=== PATIENT | male | born 1940 | race Caucasian/White ===

== ENCOUNTER → 2019-10-21 12:01 | Outpatient (BNVA) | payer OTHER, SELFPAY | PROVIDERS: Family Provider Family Medicine; PCP Family Medicine; Visit Provider Specialist | DX: G62.9 Polyneuropathy, unspecified (principal); M79.662 Pain in left lower leg; M79.661 Pain in right lower leg; Z87.891 Personal history of nicotine dependence | CPT/HCPCS: 95909 ==

== ENCOUNTER → 2020-06-16 12:57 | Outpatient (BNVA) | payer OTHER, SELFPAY | PROVIDERS: Family Provider Family Medicine; PCP Family Medicine; Visit Provider Internal Medicine Rheumatology | DX: M45.9 Ankylosing spondylitis of unspecified sites in spine (principal); Z79.899 Other long term (current) drug therapy; Z11.1 Encounter for screening for respiratory tuberculosis; Z11.59 Encounter for screening for other viral diseases; S22.079A Unspecified fracture of T9-T10 vertebra, initial encounter for closed fracture; Y93.9 Activity, unspecified; I25.10 Atherosclerotic heart disease of native coronary artery without angina pectoris; I48.91 Unspecified atrial fibrillation; Z85.46 Personal history of malignant neoplasm of prostate; Z87.891 Personal history of nicotine dependence | CPT/HCPCS: 36415; 80076; 82565; 85025; 85651; 86140; 86480; 86704; 86803; 86812; 87340; 99204 ==

== ENCOUNTER 2021-04-12 14:29 | Emergency (ER) | payer OTHER, SELFPAY ==
--- NOTE | 2021-04-12 14:42 | USCV_ITS ---
Herman Luna Age: 80 Gender: M : 1940 Exam Date: 04/12/2021 15:10 Ordering Phys: Gavi Bernstein Technologist: Rodrick Villatoro [place] [facility] [facility] [place]: LLE SWELLING HISTORY: Lower extremity swelling. PROCEDURES: Venous duplex imaging was performed in only the left lower extremity. The following venous structures were evaluated: common femoral vein, profunda vein, proximal portion of the greater saphenous vein, superficial femoral vein, and the popliteal vein. In addition, the posterior tibial and peroneal trunk were evaluated. Serial compression, augmentation maneuvers, and spectral Doppler flow evaluation were performed. FINDINGS: No evidence of DVT seen in any vessel visualized at this time. CONCLUSIONS No evidence of left lower extremity DVT. Clifford Joyce MD (Electronically Signed) Final Date: 12 April 2021 16:26 S
--- NOTE | 2021-04-12 15:13 | PC.NURSE ---
1ST CALL TO LOBBY NO ANSWER
[2021-04-12 16:13] VITALS: BP 157/73; PULSE 53; RESP 16; TEMP 36.5; O2SAT 98; BMI 33.1
--- NOTE | 2021-04-12 16:25 | ED_ITS ---
HPI - General Adult General: Chief complaint: Extremity Problem,Nontraumatic Stated complaint: [facility] for poss clot Time Seen by Provider: 04/12/21 16:09 History of Present Illness: HPI narrative: Patient is a 80-year-old male with history of chronic lower extremity swelling who presents emergency room for evaluation of possible DVT in the L leg. Patient was seen today at the [place] [facility] was found to have a high lab number. Patient was told to go to the emergency for evaluation of blood clot. Patient denies any pain. Patient denies any decreased sensation numbness, leg wound, fever/chills, worsening pain or numbness in the affected extremity. Onset: chronic Duration:ongoing Location:home Severity:mild Review of Systems Narrative: Constitutional: No fever, no chills. HEENT: No vision changes CV: No chest pain, no palpitations PULM: no cough, no dyspnea. GI: No abdominal pain, no N/V/D. : No dysuria MSKEL: No muscle pain, +L leg swelling SKIN: No new rashes, no lesions. NEURO: No headache, no focal weakness. HEME: No visible bruises PSYCH: Normal mood PFSH ED PFSH: Medical History Ankylosing spondylitis 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 Atrial fibrillation CAD (coronary artery disease) Cardiomyopathy Embolic stroke Fracture of neck and mid back Fracture of T10 vertebra History of colon polyps HTN (hypertension) Hyperlipidemia Obstructive sleep apnea Prostate cancer Surgical History H/O heart bypass surgery x2 H/O transurethral resection of prostate History of colonoscopy 2019 History of esophagogastroduodenoscopy (EGD) 2014 History of hernia repair History of umbilical hernia repair 2014 Family History Other CAD (coronary artery disease) Cancer Diabetes Hyperlipidemia Hypertension Stroke Denies family history of Rheumatoid arthritis Lupus Chronic kidney disease (CKD) Family history of premature coronary artery disease Lung disease Social History Smoking and tobacco status: never smoked Alcohol intake: never History of recent travel: No Physical Exam Narrative: EXAM NARRATIVE: Head: Atraumatic Eyes: PERRL, conjunctiva without injection ENT: Mucous membrane moist NECK: Supple, ROM intact LUNGS: LCTAB, no crackles/rhonchi CV: RRR ABDOMEN: Soft, nontender in all quadrants EXTREMITY: Normal ROM, 2+ edema b/l in the LE, no ke's sign L, 2+ DP/PT pulses L leg, cap refill< 3 seconds, sensations and strength intact in the L leg SKIN: No rash or erythema NEURO: Awake and alert, no focal motor deficits PSYCH: Normal mood and affect Course Vital Signs: Vital signs: Vital Signs Temperature 97.7 F 04/12/21 16:13 Pulse Rate 53 L 04/12/21 16:13 Respiratory Rate 16 04/12/21 16:13 Blood Pressure 157/73 04/12/21 16:13 Pulse Oximetry 98 04/12/21 16:13 MDM - General Adult MDM Narrative: Medical decision making narrative: 80-year-old male presents emergency room for evaluation of possible clot in the left leg in the setting of chronic swelling abnormal blood work. On exam, patient has 2+ left lower extremity swelling. Neurovascular exam intact on the affected side. US negative for DVT. Patient has no focal complaints of pains. Do not acute NSTI infection, compartment syndrome, arterial vascular occlusion, trauma/injuries at this time. If patient has repeat swelling or pain, to get repeat US in 1 week. RX tylenol PRN pain Disposition: Discharge. Patient counseled regarding diagnostic impression, treatment plan. Patient given ED strict return precautions to return for continuation, worsening, or development of new symptoms. Instructed to [facility]. Patient verbalized understanding. Imaging Data^: Other Imaging: Radiologist's impression: [address] [id number] ReportSigned Patient: Herman Luna #: [id number]: 3Acct#:[id number]/Sex: 80 / MADM Date: 04/12/21Loc: ERRoom/Bed:Attending Dr: Ordering Provider/Ordering MD: Gavi Bernstein Date of Service: 04/12/21 Procedure(s): [place] [address] Accession Number(s): [id number] Report Number: [id number] Herman Luna Age: 80 Gender: M : 1940 Exam Date: 04/12/2021 15:10 Ordering Phys: Gavi Bernstein Technologist: Rodrick Villatoro Exam Location: [facility] [place] Indication: LLE SWELLING HISTORY: Lower extremity swelling. PROCEDURES: Venous duplex imaging was performed in only the left lower extremity. The following venous structures were evaluated: common femoral vein, profunda vein, proximal portion of the greater saphenous vein, superficial femoral vein, and the popliteal vein. In addition, the posterior tibial and peroneal trunk were evaluated. Serial compression, augmentation maneuvers, and spectral Doppler flow evaluation were performed. FINDINGS: No evidence of DVT seen in any vessel visualized at this time. CONCLUSIONS No evidence of left lower extremity DVT. Clifford Joyce MD (Electronically Signed) Final Date: 12 April 2021 16:26 S Discharge Plan Discharge Patient Disposition: Home Clinical Impression: Leg swelling Condition: Stable Prescriptions: No Action Eliquis 5 mg tablet 5 mg PO BID RF: 0 hydrochlorothiazide 25 mg tablet 25 mg PO QAM RF: 0 lisinopril 20 mg tablet 20 mg PO DAILY RF: 0 cholecalciferol (vitamin D3) PO RF: 0 furosemide 20 mg tablet 40 mg PO QAM RF: 0 Eligard (3 month) 22.5 mg syringe SUBCUT RF: 0 potassium chloride 20 mEq/15 mL liquid 40 meq PO DAILY Qty: 473 RF: 0 furosemide 20 mg tablet 20 mg PO 1400 Qty: 30 RF: 6 ezetimibe 10 mg tablet 10 mg PO DAILY RF: 0 tramadol 50 mg tablet 50 mg PO BID PRNRF: 0 Discharge Orders: Discharge ED (Routine); Ordered 04/12/21 Ordered By: Sonal Gloria Referrals: Abbi Mirza MD [Primary Care Provider] - Discharge Diet: Advance as tolerated Discharge Activity: Resume usual activity Patient Instructions: Leg Edema (ED) Activity Restrictions/Additional Instructions: Please follow-up with your primary care provider for further evaluation of your leg swelling., Come back to the ER for any pain, numbness, tingling, difficulty moving the affected leg, or any new concerning complaints Coding Level of Care Code ED Superintendent Of Generation for Chg Fwd
== END 2021-04-12 17:14 | disposition home or self-care (01) ==
PROVIDERS: Emergency Provider Emergency Medicine; PCP Family Medicine
DX: M79.89 Other specified soft tissue disorders (principal); Z79.01 Long term (current) use of anticoagulants; I25.10 Atherosclerotic heart disease of native coronary artery without angina pectoris; I10 Essential (primary) hypertension; E78.5 Hyperlipidemia, unspecified; Z85.46 Personal history of malignant neoplasm of prostate
CPT/HCPCS: 93971; 99281

== ENCOUNTER → 2021-05-04 11:08 | Outpatient (BNVA) | payer OTHER, SELFPAY | PROVIDERS: PCP Family Medicine; Visit Provider Orthopaedic Surgery | DX: S22.079A Unspecified fracture of T9-T10 vertebra, initial encounter for closed fracture (principal); X58.XXXA Exposure to other specified factors, initial encounter | CPT/HCPCS: 87635 ==

== ENCOUNTER 2021-05-09 07:00 | Day surgery (SDC) | payer OTHER, SELFPAY ==
[2021-05-04 09:21] VITALS: BMI 34.3
[2021-05-04 10:18] LABS: Basophils # 0.1 10^3/uL (0.0-0.1); Eosinophils # 0.4 10^3/uL (0.0-0.8); Eosinophils % 4.5 %; Hematocrit 37.9 % (42.0-52.0); Hemoglobin 12.1 g/dL (11.7-16.6); Lymphocytes # 1.9 10^3/uL (0.8-4.8); Lymphocytes % 21.7 %; Mean Corpuscular HGB Conc 31.9 g/dL (30.0-36.0); Mean Corpuscular Hemoglobin 27.4 pg (28.0-34.0); Mean Corpuscular Volume 85.9 fl (80-94); Mean Platelet Volume 9.2 fL (7.4-10.4); Monocytes # 0.8 10^3/uL (0.2-0.9); Monocytes % 9.3 %; Neutrophils # 5.63 10^3/uL (1.8-7.7); Neutrophils % 63.3 %; Nucleated Red Blood Cells % 0 %; Platelet Count 251 10^3/cmm (130-400); Red Blood Count 4.41 10^6/uL (4.1-5.3); Red Cell Distribution Width 13.6 % (12.1-15.1); White Blood Count 8.9 10^3/uL (4.0-10.0)
[2021-05-04 10:28] LABS: INR 1.29 (0.8-1.2)
[2021-05-04 10:29] LABS: Partial Thromboplastin Time 41.2 SECONDS (23.9-36.7)
--- NOTE | 2021-05-04 10:38 | ANES.PREANE2 ---
Pre-Anesthetic Assessment Pre-Anesthetic Assessment: Height/Weight: Height 1.63 m Weight 90.718 kg Preop Diagnosis: bakc pain Proposed Procedure: Operation Date: 05/09/21 09:20 Proposed Procedures p PFS T7/L2 11169 36232(x8) 63404 09891 42665 M45.9(Not Applicable) - Jluis Thompson DO s Lumbar Spine Decompression T10/T11(Not Applicable) - Jluis Thompson DO Familial anesthetic complications: none Social: Social History: No alcohol and No tobacco Exam: Pre-Anes Outpt Exam: alert, oriented x 3, clear to auscultation bilaterally and regular rate & rhythm Airway: MP: 3 Dentition: False Pulmonary: Pulmonary: Sleep apnea CV/HEM: CV/HEM: Afib, CAD (no stents), HTN and AR Musc/skel: Comments: ankylosing spondylitis Neuropsych: Neuropsych: CVA (years ago - no residual deficits) Anesthetic Plan: ASA status: 3 Anesthesia: General Risk of > 500 ml blood loss (7ml/kg in children): No PFSH Anesthesia PFSH: Medical History Ankylosing spondylitis 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 Atrial fibrillation CAD (coronary artery disease) Cardiomyopathy Embolic stroke Fracture of neck and mid back Fracture of T10 vertebra History of colon polyps HTN (hypertension) Hyperlipidemia Obstructive sleep apnea Prostate cancer Surgical History H/O heart bypass surgery x2 H/O transurethral resection of prostate History of colonoscopy 2019 History of esophagogastroduodenoscopy (EGD) 2014 History of hernia repair History of umbilical hernia repair 2014 Family History Other CAD (coronary artery disease) Cancer Diabetes Hyperlipidemia Hypertension Stroke Denies family history of Rheumatoid arthritis Lupus Chronic kidney disease (CKD) Family history of premature coronary artery disease Lung disease Social History Smoking and tobacco status: never smoked Alcohol intake: never History of recent travel: No Data Anesthesia CBC & Chem 7: 05/04/21 09:55 05/04/21 09:55 Other Labs: Laboratory Results - last 48 hr 05/04/21 05/04/21 09:55 09:55 WBC 8.9 RBC 4.41 Hgb 12.1 Hct 37.9 L MCV 85.9 MCH 27.4 L MCHC 31.9 RDW 13.6 Plt Count 251 MPV 9.2 Neut % (Auto) 63.3 Lymph % (Auto) 21.7 [place] % (Auto) 9.3 Eos % (Auto) 4.5 Baso % (Auto) 1.0 Neut # (Auto) 5.63 Lymph # (Auto) 1.9 [place] # (Auto) 0.8 Eos # (Auto) 0.4 Baso # (Auto) 0.1 Nucleated RBC % (auto) 0 Nucleated RBCs # 0.0 PT 16.50 H INR 1.29 H APTT 41.2 H Cardiac Studies: No Data to Display
[2021-05-04 10:45] LABS: Anion Gap 18.3 (5-19); Blood Urea Nitrogen 14 mg/dL (8-23); Calcium 8.9 mg/dL (8.5-10.5); Carbon Dioxide 24 mmol/L (22-29); Chloride 98 mmol/L (98-107); Glucose 100 mg/dL (65-115); Osmolality Calculated 283 mOsm/kg (285-295); Potassium 4.3 mmol/L (3.5-5.1); Sodium 136 mmol/L (136-145)
== END 2021-05-09 10:00 | disposition home or self-care (01) ==
LOC: OR 05-16 11:49
PROVIDERS: Anesthesiology; PCP Family Medicine; Visit Provider Orthopaedic Surgery
DX: Z01.810 Encounter for preprocedural cardiovascular examination (principal); I42.9 Cardiomyopathy, unspecified; I25.10 Atherosclerotic heart disease of native coronary artery without angina pectoris
CPT/HCPCS: 80048; 85025; 85610; 85730

== ENCOUNTER → 2021-06-08 00:01 | Outpatient (BNVA) | payer OTHER, SELFPAY | PROVIDERS: PCP Family Medicine; Visit Provider Orthopaedic Surgery | DX: Z20.822 Contact with and (suspected) exposure to COVID-19 (principal) | CPT/HCPCS: 87635 ==

== ENCOUNTER 2021-06-09 06:54 | Outpatient (CLI) | payer OTHER, SELFPAY ==
--- NOTE | 2021-06-09 | USCV_ITS ---
Herman Luna Age: 80 Gender: M : 1940 Exam Date: 06/09/2021 07:39 Ordering Phys: Krystal Portillo MD ([email or web address]) Technologist: KEITH [place] [facility] [place]: Coronary disease, CHF, preop clearance BP: 130 / 50 HR: 54 Rhythm: Other Technical Quality: Adequate MEASUREMENTS (Male / Female) Normal Values 2D ECHO LV Diastolic Diameter PLAX 4.4 cm 4.2 - 5.9 / 3.9 - 5.3 cm LV Systolic Diameter PLAX 3.4 cm IVS Diastolic Thickness 1.2 cm 0.6 - 1.0 / 0.6 - 0.9 cm IVS Systolic Thickness 1.4 cm LVPW Diastolic Thickness 1.2 cm 0.6 - 1.0 / 0.6 - 0.9 cm LVPW Systolic Thickness 1.2 cm LVOT Diameter 2.0 cm LV Ejection Fraction 2D Teich 45.0 % LV Ejection Fraction MOD 2C 23.4 % LV Ejection Fraction 2C AL 24.3 % LA Diameter 4.1 cm LA Width 5.0 cm LA Height 5.1 cm RA Width 4.9 cm RA Height 5.7 cm Aorta at Sinotubular Diameter 2.6 cm M-MODE Aortic Annulus Diameter 3.5 cm LA Ao Ratio MM 1.0 MV E Point Septal Separation 2.1 cm DOPPLER AV Peak Velocity 113.0 cm/s LVOT Peak Velocity 91.0 cm/s AV Area Cont Eq vti 2.5 cm squared AV Area Cont Eq pk 2.6 cm squared TR Peak Velocity 415.1 cm/s TR Peak Gradient 68.9 mmHg TR Mean Velocity 318.8 cm/s TR Mean Gradient 46.2 mmHg TR Velocity Time Integral 146.1 cm Right Atrial Pressure 3.0 mmHg Pulmonary Artery Systolic Pressu 71.9 mmHg FINDINGS Left Ventricle Mild dilated left ventricle cavity. Moderately decreased left ventricular systolic function. Left ventricular ejection fraction is estimated at 40 %. There is global hypokinesis with severe hypokinesis of basal to mid inferior, basal to mid inferolateral and septal barrera. Abnormal septal motion consistent with conduction abnormality. Abnormal diastolic function. Right Ventricle Mildly dilated right ventricle with mildly decreased right ventricle systolic function. Right ventricular systolic pressure 81 mmHg. Right Atrium Moderately increased right atrial size. Left Atrium Severely increased left atrial size. Mitral Valve Moderately thickened mitral valve. Mild-moderate mitral valve regurgitation. Aortic Valve Sclerotic trileaflet aortic valve. No aortic valve stenosis. Trace aortic valve regurgitation. Tricuspid Valve Structurally normal tricuspid valve. No tricuspid valve stenosis. Trace to mild tricuspid valve regurgitation. Pulmonic Valve Structurally normal pulmonic valve. [id number] pulmonary valve regurgitation. Pericardium No pericardial effusion. Aorta Normal size aortic root and proximal ascending aorta. CONCLUSIONS 1. This is a technically difficult study. Ultrasound nursing agent Optison was used per protocol. 2. Mild dilated left ventricle cavity. Moderately decreased left ventricular systolic function. Left ventricular ejection fraction is estimated at 40 %. There is global hypokinesis with severe hypokinesis of basal to mid inferior, basal to mid inferolateral and septal barrera. Abnormal diastolic function. 3. Mildly dilated right ventricle with mildly decreased right ventricle systolic function. 4. Severely increased left atrial size. 5. Mild-moderate mitral valve regurgitation. 6. Severe pulmonary hypertension with pulmonary pressure estimated at 79 mmHg. 7. When compared to previous echocardiogram dated 10/03/2017, pulmonary artery pressure has increased. Krystal Portillo MD (Electronically Signed) Final Date: 09 June 2021 17:19 S
[2021-06-09 07:15] VITALS: BMI 32.5
--- NOTE | 2021-06-09 07:16 | ECG_ITS ---
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 Interpretive Statements NAME OF STUDY: LEXISCAN SESTAMIBI STRESS TEST INDICATION: [Chest Pain] PROCEDURE: At the baseline, the blood pressure was [168/81 mmHg, oxygen saturation 96%] with a heart rate of [61 bpm]. The electrocardiogram showed atrial fibrillation, possible old inferior myocardial infarction. Right bundle branch block. The Lexiscan was infused over a period of 20 seconds. A total of 0.4 milligrams of Lexiscan was infused. The stress phase was continued for a total of 5 minutes. Heart rate at the end of the stress phase was 55 bpm, oxygen saturation 96% with a blood pressure of 140/65 mmHg. The EKG at the peak infusion revealed no significant ST-T wave changes. The study was terminated protocol completion. Sestamibi was injected 20 seconds after the Lexiscan infusion. Blood pressure at the end of the recovery phase was [146/70 mmHg, oxygen saturation 96%] with a heart rate of [80] per minute. CONCLUSION: 1. No significant EKG changes with the LexiScan infusion. 2. No LexiScan induced chest pain or cardiac arrhythmia. 3. Normal blood pressure and heart rate response. 4. Sestamibi/sestamibi perfusion scan pending; see separate report. Electronically Signed On 06-09-2021 17:25:13 [employer] PRODUCTION MANAGER by Krystal Portillo M.D. [id number]
--- NOTE | 2021-06-09 07:17 | NMCV_ITS ---
NM ciro perf SPECT r/s* [id number] Herman Luna Age: 80 Gender: M : 1940 Exam Date: 06/09/2021 08:24 Ordering Phys: Krystal Portillo MD ([email or web address]) Technologist: JORY Bass Exam Location: [facility] Indications: Preoperative cardiac clearance, history of CAD STRESS TEST Please see separate stress test report in [facility] for full findings IMAGE PROTOCOL Rest/Stress 1 Lexiscan Day Radiopharmaceutical Dose (mCi) Administration Site Administered by Rest: Tc-99m 10.8 IV JORY Carmichael Sestamibi Stress:Tc-99m 32.1 IV JORY Carmichael Sestamibi Rest: 09-Jun-2021 60 Discovery 630 Stress: 09-Jun-2021 30 Discovery 630 0.4mg Lexiscan. Supine position only as patient was unable to lay prone. SPECT RESULTS Technical Quality: Good Raw Data Analysis: Normal Image Corrections: No attenuation or motion correction applied Summed Stress Score: 27 Summed Rest Score: 25 Summed Difference Score: 3 PERFUSION FINDINGS Large sized perfusion abnormality of severe severity basal to apical inferior, basal to mid anterolateral, basal to mid inferolateral, apical lateral, apical anterior and apical barrera on rest images with subtle reversibility in apical apical septal, apical anterior and apical lateral barrera on stress images. FUNCTIONAL RESULTS (calculated via Gated SPECT) Stress Image LV EF (%): 40 Stress EDV (mL):230 TID: 1.16 Stress ESV (mL):138 FUNCTIONAL FINDINGS: The left ventricle is mildly dilated. Transient Ischemia Dilatation of 1.2. There is moderately reduced left ventricular global systolic function. The left ventricular ejection fraction is reduced with a value of 40%. There is severe hypokinesis of entire inferior, septal and apical barrera. Markedly increased end-diastolic and systolic volumes. IMPRESSIONS 1. Large sized perfusion abnormality of severe severity basal to apical inferior, basal to mid anterolateral, basal to mid inferolateral, apical lateral, apical anterior and apical barrera with subtle reversibility in apical barrera. 2.This is suggestive of old myocardial infarction in right coronary artery, circumflex and left anterior descending artery territory with minimal eliana- infarct ischemia in left anterior descending artery territory. 3. The left ventricular ejection fraction is moderately reduced with a value of 40%. 4. There is severe hypokinesis of entire inferior, septal and apical barrera. 5. These findings are compatible with an ischemic cardiomyopathy. 6. EKG portion of the study will be reported separately. Krystal Portillo MD (Electronically Signed) Final Date: 09 June 2021 13:20 S
[2021-06-09] MEDS: perflutren protein-a microsphr 0.22 mg/mL SDV 3 mL IV (08:36)
[2021-06-09 09:11] VITALS: BP 143/69; PULSE 61
[2021-06-09] MEDS: regadenoson 0.4 Mg/5 ml Syringe IVP (09:11)
== END 2021-06-09 06:55 | disposition home or self-care (01) ==
LOC: CDL 06:56
PROVIDERS: PCP Family Medicine; Visit Provider Internal Medicine Cardiovascular Disease
DX: Z01.810 Encounter for preprocedural cardiovascular examination (principal); R07.9 Chest pain, unspecified; I25.10 Atherosclerotic heart disease of native coronary artery without angina pectoris; I34.0 Nonrheumatic mitral (valve) insufficiency; I27.20 Pulmonary hypertension, unspecified
CPT/HCPCS: 78452; 93017; A9500; C8929; J2785; Q9956

== ENCOUNTER 2021-06-13 08:54 | Day surgery (SDC) | payer OTHER, SELFPAY ==
[2021-06-10 13:19] VITALS: BMI 32.5
--- NOTE | 2021-06-10 13:57 | P.ANESASSM_ITS ---
Pre-Anesthetic Assessment Height/Weight: Height 1.63 m Weight 86.183 kg Preop Diagnosis: back pain Operation Date: 06/13/21 10:40 Proposed Procedures p PFS T7/L2 53198 73138(i6) 43091 98281 63439 M45.9(Not Applicable) - Jluis H Donna, DO s Lumbar Spine Decompression T10/T11(Not Applicable) - Jluis H Donna, DO Familial anesthetic complications: none Was Beta Anabelle taken within 24 hours: N/A Was Clonidine taken within 24 hours: N/A Social No alcohol Exam alert, oriented x 3 and regular rate & rhythm Diminished breath sounds b/l Airway Submandibular: within normal limits Cervical ROM: Other (Extremely limited mobility in neck) Mallampati: Class III Dentition: chipped History/ROS No significant history except as noted Pulmonary None reported CV/HEM Atrial Fibrillation, Coronary Artery Disease and Hypertension Myocardial perfusion exam IMPRESSIONS ?1. Large sized perfusion abnormality of? severe severity basal to apical ?inferior, basal to mid anterolateral, basal to mid inferolateral, apical ?lateral, apical anterior and apical barrera with subtle reversibility in apical ?barrera. ?2.This is suggestive of old myocardial infarction in right coronary artery, ?circumflex and left anterior descending artery territory with minimal eliana- ?infarct ischemia in left anterior descending artery territory. ?3. The left ventricular ejection fraction is moderately reduced with a value of ?40%. ?4. There is severe hypokinesis of entire inferior, septal and apical barrera. ?5. These findings are compatible with an ischemic cardiomyopathy. ?6. EKG portion of the study will be reported separately. Stress Test CONCLUSION: 1. No significant EKG changes with the LexiScan infusion. 2. No LexiScan induced chest pain or cardiac arrhythmia. 3. Normal blood pressure and heart rate response. 4. Sestamibi/sestamibi perfusion scan pending; see separate report. [facility] [place] Anklyosing spondylitis Neuropsych Cerebrovascular Accident Medications/Allergies Home Medications Medication Instructions Recorded Confirmed Last Taken Type apixaban 5 mg tablet (Eliquis) 5 mg PO BID 05/27/19 06/10/21 06/09/21 History cholecalciferol (vitamin D3) 5,000 units PO DAILY 05/27/19 06/10/21 Unknown History lisinopril 20 mg tablet 10 mg PO DAILY tab 05/27/19 06/10/21 Unknown History ezetimibe 10 mg tablet 10 mg PO DAILY 12/14/20 06/10/21 Unknown History tramadol 50 mg tablet 50 mg PO BID PRN 12/14/20 06/10/21 Unknown History furosemide 20 mg tablet 20 mg PO 1400 #30 tab 12/30/20 06/10/21 Unknown Rx furosemide 20 mg tablet 40 mg PO QAM tab 12/30/20 06/10/21 Unknown History gabapentin 100 mg capsule 100 mg PO BID 05/05/21 06/10/21 Unknown History leuprolide (3 month) 22.5 mg (3 See Rx Instructions .ROUTE .COMPLEX 05/05/21 06/10/21 Unknown History month) subcutaneous syringe ([employer]) potassium chloride 20 mEq/15 mL 30 meq PO DAILY 06/10/21 06/10/21 Unknown History oral liquid Allergies Allergy/AdvReac Type Severity Reaction Status Date / Time No Known Allergies Allergy Verified 05/05/21 15:26 [facility] Anesthesia Medical History Ankylosing spondylitis 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 Atrial fibrillation CAD (coronary artery disease) Cardiomyopathy Embolic stroke Fracture of neck and mid back Fracture of T10 vertebra History of colon polyps HTN (hypertension) Hyperlipidemia Obstructive sleep apnea Prostate cancer Surgical History H/O heart bypass surgery x2 H/O transurethral resection of prostate History of colonoscopy 2019 History of esophagogastroduodenoscopy (EGD) 2014 History of hernia repair History of umbilical hernia repair 2014 Family History Other CAD (coronary artery disease) Cancer Diabetes Hyperlipidemia Hypertension Stroke Denies family history of Rheumatoid arthritis Lupus Chronic kidney disease (CKD) Family history of premature coronary artery disease Lung disease Social History Alcohol intake: never History of recent travel: No Data Anesthesia Cardiac Studies: Echocardiogram 06/09/21 Sestamibi Stress Test (Cardiology) 06/09/21
[2021-06-10 14:05] LABS: Basophils # 0.1 10^3/uL (0.0-0.1); Basophils % 1.1 %; Eosinophils # 0.4 10^3/uL (0.0-0.8); Eosinophils % 4.6 %; Hematocrit 38.5 % (42.0-52.0); Hemoglobin 12.2 g/dL (11.7-16.6); Lymphocytes # 2.1 10^3/uL (0.8-4.8); Mean Corpuscular HGB Conc 31.7 g/dL (30.0-36.0); Mean Corpuscular Hemoglobin 26.8 pg (28.0-34.0); Mean Corpuscular Volume 84.6 fl (80-94); Mean Platelet Volume 9.8 fL (7.4-10.4); Monocytes # 0.7 10^3/uL (0.2-0.9); Monocytes % 8.6 %; Neutrophils # 4.43 10^3/uL (1.8-7.7); Neutrophils % 58.4 %; Nucleated Red Blood Cells % 0 %; Platelet Count 245 10^3/cmm (130-400); Red Blood Count 4.55 10^6/uL (4.1-5.3); Red Cell Distribution Width 14.1 % (12.1-15.1); White Blood Count 7.6 10^3/uL (4.0-10.0)
[2021-06-10 14:35] LABS: Alanine Aminotransferase 14 U/L (0-41); Albumin Level 3.9 g/dL (3.5-5.2); Alkaline Phosphatase 70 IU/L (40-130); Anion Gap 16.8 (5-19); Aspartate Amino Transferase 24 U/L (0-40); Blood Urea Nitrogen 13 mg/dL (8-23); Calcium 9.9 mg/dL (8.5-10.5); Carbon Dioxide 28 mmol/L (22-29); Chloride 100 mmol/L (98-107); Globulin 3.1 g/dL (1.3-4.6); Glucose 93 mg/dL (65-115); Osmolality Calculated 290 mOsm/kg (285-295); Potassium 4.8 mmol/L (3.5-5.1); Sodium 140 mmol/L (136-145); Total Bilirubin 0.3 mg/dL (0.15-1.2)
[2021-06-13 09:25] VITALS: BP 155/75; PULSE 65; RESP 18; TEMP 36.4; O2SAT 97
--- NOTE | 2021-06-13 09:52 | P.ANESUD_ITS ---
Pre-Anesthetic Update Pre-Anesthetic Assessment: Date of Surgery/Procedure: 06/13/21 Preop Sarah gnosis: Pseudoarthrosis Thoracic spine Proposed Procedure: Operation Date: 06/13/21 10:40 Proposed Procedures p PFS T7/L2 50705 60381(x8) 77122 30733 25721 M45.9(Not Applicable) - Jluis H Donna, DO s Lumbar Spine Decompression T10/T11(Not Applicable) - Jluis H Donna, DO Any changes to Pre-Anesthetic Assessment?: No Last Intake: Intake Last Liquid Date 06/12/21 Last Liquid Time 22:00 Last Solid Date 06/12/21 Last Solid Time 18:00 Vitals: Temperature 97.6 F 06/13/21 09:25 Temperature Source Temporal Artery S can 06/13/21 09:25 Pulse Rate 65 06/13/21 09:25 Respiratory Rate 18 06/13/21 09:25 Blood Pressure 155/75 06/13/21 09:25 Blood Pressure Leigha n 101 06/13/21 09:25 Pulse Oximetry 97 06/13/21 09:25 Oxygen Delivery Me thod 06/13/21 09:25 Exam: Pre-Anes Outpt Exam: alert, oriented x 3, clear to auscultation bilaterally and regular rate & rhythm Cardiac Studies: Echocardiogram 06/09/21 Sestamibi Stress Test (Cardiology) 06/09/21
[2021-06-13] MEDS: sodium chloride 0.9% 1,000 ML 30 ML IV (10:03)
--- NOTE | 2021-06-13 10:30 | P.HP_ITS ---
Providers/Chief Complaint Primary Care Provider: Abbi Mirza MD Chief Complaint: back pain History of Present Illness Herman Luna is a 80 year old male continues to experience back pain. He also has limited motion to his back. 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 Review of Systems 2 Narrative: General ROS: negative for weight changes, fever ENT ROS: negative for nasal congestion, drainage or bleeding, sore throat, dysphagia or ear pain Eyes: PERRL Hematological and Lymphatic ROS: negative for swollen glands or abnormal bleeding Endocrine ROS: negative for polyuria/polydpsia or new changes in weight Respiratory ROS: negative for cough, shortness of breath, or wheezing Cardiovascular ROS: negative for chest pain or dyspnea on exertion Gastrointestinal ROS: negative for reflux, abdominal pain, change in bowel habits, or black or bloody stools Musculoskeletal ROS: negative for back pain, neck pain, or joint pain or swelling except for current problem Neurological ROS: negative for TIA or stoke symptoms Skin: no rashes Medications/Allergies Home Medications Medication Instructions Recorded Confirmed Last Taken Type apixaban 5 mg tablet (Eliquis) 5 mg PO BID 05/27/19 06/10/21 06/10/21 History cholecalciferol (vitamin D3) 5,000 units PO DAILY 05/27/19 06/13/21 06/12/21 History lisinopril 20 mg tablet 10 mg PO DAILY tab 05/27/19 06/13/21 06/12/21 History ezetimibe 10 mg tablet 10 mg PO DAILY 12/14/20 06/13/21 06/12/21 History tramadol 50 mg tablet 50 mg PO BID PRN 12/14/20 06/13/21 06/12/21 History furosemide 20 mg tablet 20 mg PO 1400 #30 tab 12/30/20 06/13/21 06/12/21 Rx furosemide 20 mg tablet 40 mg PO QAM tab 12/30/20 06/13/21 06/12/21 History gabapentin 100 mg capsule 100 mg PO BID 05/05/21 06/13/21 06/12/21 History leuprolide (3 month) 22.5 mg (3 See Rx Instructions .ROUTE .COMPLEX 05/05/21 06/10/21 Unknown History month) subcutaneous syringe ([employer]) potassium chloride 20 mEq/15 mL 30 meq PO DAILY 06/10/21 06/13/21 06/12/21 History oral liquid Allergies Allergy/AdvReac Type Severity Reaction Status Date / Time No Known Allergies Allergy Verified 05/05/21 15:26 PFSH Acute PFSH: Medical History Ankylosing spondylitis 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 Atrial fibrillation CAD (coronary artery disease) Cardiomyopathy Embolic stroke Fracture of neck and mid back Fracture of T10 vertebra History of colon polyps HTN (hypertension) Hyperlipidemia Obstructive sleep apnea Prostate cancer Surgical History H/O heart bypass surgery x2 H/O transurethral resection of prostate History of colonoscopy 2019 History of esophagogastroduodenoscopy (EGD) 2014 History of hernia repair History of umbilical hernia repair 2013 Family History Other CAD (coronary artery disease) Cancer Diabetes Hyperlipidemia Hypertension Stroke Denies family history of Rheumatoid arthritis Lupus Chronic kidney disease (CKD) Family history of premature coronary artery disease Lung disease Social History Alcohol intake: never History of recent travel: No Vitals/I&O/Wt Last Vital Signs Temp 97.6 F 06/13/21 09:25 Pulse 65 06/13/21 09:25 Resp 18 06/13/21 09:25 BP 155/75 06/13/21 09:25 Pulse Ox 97 06/13/21 09:25 Physical Exam Narrative: EXAM NARRATIVE: Kyphotic spine resting in bed CONSTITUTIONAL: The patient is a normal appearing [] in no apparent distress. GENERAL: Patient in no acute distress. CARDIAC: Regular rate and rhythm. CHEST: Normal inspiratory effort, normal respiratory rate. ABDOMEN: Soft and nontender. SKIN: Clear, warm and intact. NEURO?PSYCH: The patient is alert and oriented to person, place and time. Sensorv /SILT Motor StrengthShoulder abduction C5 5/5Wrist extension C6 5/5Elbow extension C7 5/5Hand Children'S Literature Professor C8 5/5Finger abduction T15/5 Radial/ Ulnar/ Median n intact LowerSensory (SILT)Motor StrengthHin flexion L2/3Ant/inner thigh 5/5Hip adduction L2/3 5/5Knee extension L4 Lat thigh, 5/5Toe dorsiflexion L5 5/5Ankle dorsiflexion L5/ Q35Ocqgkke flexion S1 5/5 DTRBleeps 2+Triceps 2+Brachioradialis 2+Patellar 2+Achilles 2+ MUSCULOSKELETAL: [] UPPEREXTREMITIES: The patient had full active ROM in fingers, wrist, elbow, and shoulder. The patient demonstrated ability to fully flex/extend/abduct/adduct fingers, make ok sign, cross 2nd/3rd digits, extend 1st digit fully.. Radial pulse 2+, CR<2 seconds. LOWER EXTREMITIES: Pt has full, active ROM of toes, ankle, knee, and hip. Dorsalis pedis/posterior tibialis pulses 2+, CR<2 seconds. SPINE: Skin warm, dry, intact. Data : 06/10/21 13:38 06/10/21 13:38 A&P Assessment and plan (1) Fracture of T10 vertebra: Posterior spine fusion to stabalize nonuinon Status: Acute Attestations Medical Necessity Statement*: failed conservative tx Coding Level of Care Code Acute Mobile Qa Tester for g Fwd Diagnoses Fracture of T10 vertebra S22.079A
[2021-06-13] MEDS: neomycin-poly-bacitracin oint 28 gm 28 APPLIC (12:00)
[2021-06-13 12:41] VITALS: BP 135/71; PULSE 70; RESP 8; TEMP 36.1; O2SAT 100
[2021-06-13 12:46] VITALS: BP 137/66; PULSE 67; RESP 16; O2SAT 100
[2021-06-13 12:51] VITALS: BP 152/74; RESP 16; TEMP 36.1; O2SAT 95
--- NOTE | 2021-06-13 12:58 | PM.OP ---
Operative Report Date of procedure: June 13, 2021 Pre-op diagnosis: Preop Diagnosis Pseudoarthrosis Thoracic spine Post-op diagnosis: same Procedure done: procedure stopped because of positioning issues Surgeon: Jluis Thompson Procedure: Patient was brought to the operative suite after attempting to position patient on the Jordan frame on the John table patient kyphosis was too much to accommodate. We took him to a different bed working at the [place] on in the reverse Trendelenburg with the Jordan frame this was also unable to get the head position to a point where we felt the intracranial pressure would be too high. This point we decided to cancel the case because we could not get him positioned adequately to perform the case safely.
--- NOTE | 2021-06-13 13:44 | ANE.PACU2 ---
Inpatient post-anesthesia follow up: Airway intact: Yes Vital signs: Temperature 97 F Pulse Rate 67 Respiratory Rate 16 Blood Pressure 152/74 Pulse Oximetry 95 Oxygen Delivery Me thod Room Air Oxygen Flow Rate 7 Fraction of Inspir ed Oxygen Hydration adequate: Yes Nausea and vomiting: Yes Pain level: 2 Mental status: Baseline
== END 2021-06-13 13:45 | disposition home or self-care (01) ==
PROVIDERS: Anesthesiology; PCP Family Medicine; Visit Provider Orthopaedic Surgery
PROC: (CPT 22610; 2021-06-13 10:40)
DX: S22.079A Unspecified fracture of T9-T10 vertebra, initial encounter for closed fracture (principal); X58.XXXA Exposure to other specified factors, initial encounter; Z53.8 Procedure and treatment not carried out for other reasons; I48.91 Unspecified atrial fibrillation; I25.10 Atherosclerotic heart disease of native coronary artery without angina pectoris; I10 Essential (primary) hypertension; E78.5 Hyperlipidemia, unspecified; G47.33 Obstructive sleep apnea (adult) (pediatric); Z85.46 Personal history of malignant neoplasm of prostate; Z95.1 Presence of aortocoronary bypass graft
CPT/HCPCS: 22610; 36415; 51702; 80053; 85025; J0330; J0690; J2704; J3010; J3490; J7030

== ENCOUNTER → 2021-12-29 13:49 | Outpatient (BNVA) | payer OTHER, SELFPAY | PROVIDERS: PCP Family Medicine; Visit Provider Internal Medicine Cardiovascular Disease | DX: I11.9 Hypertensive heart disease without heart failure (principal); I25.10 Atherosclerotic heart disease of native coronary artery without angina pectoris; E78.2 Mixed hyperlipidemia; Z86.73 Personal history of transient ischemic attack (TIA), and cerebral infarction without residual deficits; Z87.891 Personal history of nicotine dependence | CPT/HCPCS: 99214 ==

== ENCOUNTER → 2022-06-29 14:17 | Outpatient (BNVA) | payer OTHER, SELFPAY | PROVIDERS: PCP Family Medicine; Visit Provider Internal Medicine Cardiovascular Disease | DX: I42.9 Cardiomyopathy, unspecified (principal); I10 Essential (primary) hypertension; I25.10 Atherosclerotic heart disease of native coronary artery without angina pectoris; I48.91 Unspecified atrial fibrillation; E78.2 Mixed hyperlipidemia; Z86.73 Personal history of transient ischemic attack (TIA), and cerebral infarction without residual deficits; Z87.891 Personal history of nicotine dependence | CPT/HCPCS: 99214; Q3014 ==

== ENCOUNTER 2022-08-18 14:00 | Emergency (ER) | payer OTHER, SELFPAY ==
[2022-08-18 14:13] LABS: Glucose Point of Care 301 mg/dL (70-110)
--- NOTE | 2022-08-18 14:21 | W.ED.ARRPALP ---
HPI - Arrhythmia/Palpitations General: Chief Complaint: Arrhythmia/Palpitations Stated Complaint: CODE BLUE Time Seen by Provider: 08/18/22 14:20 Limitations: other (Cardiac arrest) History of Present Illness: Mr Luna is a 81-year-old gentleman with, per chart review history of cardiomyopathy, CAD, atrial fibrillation, hypertension, hyperlipidemia, history of stroke presenting to the emergency department in cardiac arrest. He presents via EMS with chest compressions in process. He had witnessed cardiac arrest with family present and bystander performed CPR. EMS reports being on scene approximately 1310 and initial rhythm being ventricular fibrillation. Patient was defibrillated and amiodarone as well as epinephrine ordered. Despite this his rhythm has continued to deteriorate into PEA. He has received approximately 13 doses of epinephrine, the 300 mg subsequently 150 mg of amiodarone, 1 amp of bicarb. Patient has supraglottic airway in place. 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 Atrial fibrillation CAD (coronary artery disease) Cardiomyopathy Embolic stroke Fracture of neck and mid back Fracture of T10 vertebra History of colon polyps HTN (hypertension) Hyperlipidemia Obstructive sleep apnea Prostate cancer Surgical History H/O heart bypass surgery x2 H/O transurethral resection of prostate History of colonoscopy 2019 History of esophagogastroduodenoscopy (EGD) 2014 History of hernia repair History of umbilical hernia repair 2014 Family History Other CAD (coronary artery disease) Cancer Diabetes Hyperlipidemia Hypertension Stroke Social History Smoking and tobacco status: former smoker Alcohol intake: never Physical Exam Const: GENERAL APPEARANCE: ill appearing, frail appearing, Limp noted and other (Cardiac arrest) HENMT: COMMON NORMALS: normocephalic and atraumatic HEAD & SCALP: normocephalic and atraumatic THROAT: posterior oropharynx normal Eye: COMMON NORMALS: conjunctivae normal CONJUNCTIVA: Yes conjunctivae normal SCLERA: sclerae normal Neck/C-Spine: COMMON NORMALS: supple GENERAL: Yes trachea midline OTHER: Significant kyphosis Resp: OTHER: Patient requiring mechanical ventilation with [id number], coarse breath sounds and secretions in the airway noted during intubation. Cardio: OTHER: No palpable central peripheral pulses GI: COMMON NORMALS: Soft to palpation PALPATION: Yes Soft to palpation Extremity: GENERAL: Yes normal exam except as noted and No edema Neuro: SENSORIUM/ORIENTATION: Yes Orientation impaired and Yes other (Unresponsive, cardiac arrest) Skin: NARRATIVE SKIN EXAM: Pallor MDM - Arrhythmia/Palpitations Medical Decision Making 81-year-old gentleman presenting with cardiac arrest. Patient has had significant downtime prehospital with multiple rounds of ACLS medications. Initial rhythm reported to be ventricular fibrillation however subsequently has deteriorated to asystole. Patient brought to ED room and resuscitation for cardiac arrest continued with generalized guidance from ACLS. Patient was intubated. He had significant aspirated contents in the airway. Despite continued resuscitative efforts with high-quality CPR patient remained in PEA and subsequently asystole. No return of spontaneous circulation or any meaningful clinical changes. [id number] ultrasound of cardiac structures was severely limited secondary to kyphosis however did not reveal any cardiac activity. The patient's family was updated in the waiting room privately and subsequently brought back to the resuscitation room. In discussion with them we will stop resuscitative efforts as the likelihood of return of spontaneous circulation or meaningful recovery is nil. Time of 1420. I expressed my condolences to family. Medical Records I reviewed the patient's medical records. Lab Data I reviewed the patient's lab results. Laboratory Results POC Glucose 301 mg/dL (70-110) H 08/18/22 14:10 Critical Care Time Critical Care Time: Critical Care Time: Yes Total Critical Care Time: 32 Attestation: Due to a high probability of clinically significant, possibly life threatening deterioration, the patient required my highest level of attention and preparedness to intervene emergently and I personally spent this critical care time directly and personally managing the patient. This critical care time included obtaining a history; examining the patient; pulse oximetry; ordering and review of laboratory and imaging studies; arranging urgent treatment with development of a management plan; evaluation of patient's response to treatment; frequent reassessment; and, discussions with other providers as applicable. It was exclusive of separately billable procedures. Primary system involved is cardiopulmonary Discharge Plan Discharge Patient Disposition: Clinical Impression: Cardiac arrest Condition: Prescriptions: No Action potassium chloride 20 mEq tablet extended release 20 meq PO DAILY gabapentin 100 mg capsule 100 mg PO BID allopurinol 100 mg tablet 100 mg PO DAILY PRN (Reason: Gout) Eliquis 5 mg tablet 5 mg PO BID cholecalciferol (vitamin D3) 5,000 units PO DAILY furosemide 20 mg tablet 40 mg PO BID Eligard (3 month) 22.5 mg syringe See Rx Instructions .ROUTE .COMPLEX Rx Instructions: 22.5 mg subcutaneously ;Q 6 months ezetimibe 10 mg tablet 10 mg PO DAILY tramadol 50 mg tablet 50 mg PO BID PRN (Reason: Pain) polyethylene glycol 3350 17 gram/dose powder 4 g PO DAILY psyllium husk 2.6 gram/4.1 gram powder 1 tbsp PO DAILY Rx Instructions: mix into at least 8 oz of water or juice before administering spironolactone 25 mg tablet 25 mg PO DAILY Qty: 90 3RF lisinopril 10 mg tablet 10 mg PO DAILY Qty: 90 3RF Discharge Orders: Discharge ED (Routine); Ordered 08/18/22 Ordered By: aB Bradley Referrals: Abbi Mirza MD [Primary Care Provider] - Probable Cause of Probable cause of : Sudden cardiac due to cardiac arrhythmia Coding Level of Care Code ED Senior Ui Designer for Simone Mauricio
--- NOTE | 2022-08-18 14:59 | PC.NURSE ---
MTS notified of patient expiration @4850. Holding and awaiting at this time.
--- NOTE | 2022-08-18 15:27 | PC.NURSE ---
Refer to code sheet
== END 2022-08-18 16:35 | disposition expired ==
PROVIDERS: Emergency Provider Emergency Medicine; PCP Family Medicine
DX: I46.9 Cardiac arrest, cause unspecified (principal); Z79.01 Long term (current) use of anticoagulants; Z87.891 Personal history of nicotine dependence; I25.10 Atherosclerotic heart disease of native coronary artery without angina pectoris; Z86.73 Personal history of transient ischemic attack (TIA), and cerebral infarction without residual deficits; I10 Essential (primary) hypertension; E78.5 Hyperlipidemia, unspecified; Z85.46 Personal history of malignant neoplasm of prostate
CPT/HCPCS: 36416; 82962; 99285; 99291; 99292